=== PATIENT | female | born 1965 | race Caucasian/White ===

== ENCOUNTER 2025-03-04 09:32 | Emergency (ER) | payer SELFPAY ==
[~2025-03-04] VITALS: Ht 154.9 cm; Wt 70.0 kg
[2025-03-04 09:34] VITALS: O2SAT 99
[2025-03-04 10:10] LABS: BASOPHILS % 0.3 % (0.0-2.0); EOSINOPHILS % 0.8 % (0.0-5.0); HEMATOCRIT. 42.4 % (36.0-48.0); HEMOGLOBIN. 14.0 g/dL (12.0-16.0); LYMPHOCYTES % 30.8 % (20.0-50.0); MEAN PLATELET VOLUME 10.5 fl (7.4-10.4); MONOCYTES % 5.5 % (2.0-8.0); NEUTROPHILS % 62.6 % (40.0-76.0); PLATELET 204 x1000/uL (130-400); RED BLOOD CELL COUNT 4.96 mill/uL (4.2-5.4); RED CELL DISTRIBUTION WIDTH 13.4 % (11.6-14.6)
[2025-03-04 10:24] LABS: CREATININE 1.0 mg/dL (0.6-1.0)
[2025-03-04 10:25] LABS: TROPONIN I HIGH SENSITIVITY < 4 ng/L (3.0-34); UREA NITROGEN BLOOD 12 mg/dL (9-23)
[2025-03-04] MEDS: ACETAMINOPHEN 325MG TABLET PO STA (11:41)
[2025-03-04 12:38] VITALS: BP 129/74; PULSE 10; RESP 13; TEMP 36.7; O2SAT 99
[2025-03-04 12:47] LABS: TROPONIN I HIGH SENSITIVITY 4 ng/L (3.0-34)
== END 2025-03-04 13:20 | disposition home or self-care (01) ==
LOC: ER 09:32 → CMPBEDREQ 17:32
DX: R07.9 Chest pain, unspecified (principal); R06.02 Shortness of breath; I10 Essential (primary) hypertension; E11.9 Type 2 diabetes mellitus without complications
CPT/HCPCS: 80048; 83880; 85025; 84484; 36415; 71045; 93005; 99285; Z7610